=== PATIENT | male | born 1945 | race Caucasian/White ===

== ENCOUNTER → 2020-03-02 | Day surgery (SDC) | payer MEDICARE, OTHER ==
[~2020-03-02] VITALS: Ht 170.2 cm; Wt 67.7 kg
[~2020-03-02] MED LIST: LIDOCAINE 1% INJ 20 ML 20 ML VIAL INJ ONE
--- NOTE | 2020-03-02 14:55 | Diagnostic Imaging Report ---
INDICATION: Left parotid mass. FINDINGS: Patient was brought to the procedure room, placed on table in the [id number] decubitus position. Ultrasound imaging of the left neck was performed to evaluate appropriate entry site. The left neck was then prepped and draped in the usual sterile fashion. A small amount of 1% lidocaine was utilized for local anesthesia. Total of four passes were made into the solid hypoechoic mass in the left parotid gland utilizing 25-gauge needles and fine-needle aspiration technique. The patient tolerated the procedure well and left the department in stable condition. IMPRESSION: Successful ultrasound-guided fine-needle aspiration of the solid left parotid mass. Pathology results are currently pending. Dictated by: Dictated on workstation # [id number]
== END ==
LOC: RAD 11:55
PROVIDERS: ATTEND Otolaryngology
DX: D11.0 Benign neoplasm of parotid gland (principal)

== ENCOUNTER → 2020-04-26 | Outpatient (CLI) | payer MEDICARE, OTHER ==
--- NOTE | 2020-04-26 13:24 | Diagnostic Imaging Report ---
PROCEDURE: US Thyroid. TECHNIQUE: Multiple real-time grayscale images were obtained of the thyroid in various projections. INDICATION: Thyroid nodule. FINDINGS: Right lobe of thyroid measures 5.3 x 1.8 x 1.8 cm and the left lobe measures 5.1 x 1.3 x 1.7 cm. Isthmus is 3 mm in thickness. Right lobe shows homogeneous echotexture and is without evidence of a discrete mass. Left lobe of the thyroid does contain a slightly echogenic to isoechoic nodule in the mid aspect measuring 1.4 x 0.7 x 0.9 cm. No associated microcalcifications are seen. Lesion is wider than it is tall. IMPRESSION: Solitary left lobe thyroid nodule. This is TI-RADS 3. Based on size, follow-up with thyroid ultrasound in 12 months is recommended to confirm stability. Dictated by: Dictated on workstation # [id number]
== END ==
LOC: RAD 11:11
PROVIDERS: ATTEND Otolaryngology
DX: E04.1 Nontoxic single thyroid nodule (principal)
CPT/HCPCS: 76536